=== PATIENT | male | born 1995 | race Caucasian/White ===

== ENCOUNTER 2019-02-06 16:17 | Emergency (ER) | payer OTHER ==
[~2019-02-06] VITALS: Ht 180.3 cm; Wt 92.0 kg
[2019-02-06 16:21] VITALS: BP 164/93
[2019-02-06] MEDS ORDERED: HYDROcodone/APAP 5/325 TABLET PO ONE (17:00)
[2019-02-06] MEDS ORDERED: HYDROcodone/APAP 5/325 TABLET ONE (17:01)
== END 2019-02-06 18:39 | disposition home or self-care (01) ==
LOC: ED 18:05
DX: S62.102A Fracture of unspecified carpal bone, left wrist, initial encounter for closed fracture (principal); S00.512A Abrasion of oral cavity, initial encounter; W18.30XA Fall on same level, unspecified, initial encounter; Y93.23 Activity, snow (alpine) (downhill) skiing, snowboarding, sledding, tobogganing and snow tubing; Y92.39 Other specified sports and athletic area as the place of occurrence of the external cause; Y99.8 Other external cause status
CPT/HCPCS: 29125; 99283